=== PATIENT | male | born 1990 | race Caucasian/White ===

== ENCOUNTER 2024-07-12 13:29 | Emergency (ER) | payer BC ==
--- OUTSIDE RECORDS SUMMARY | 2024-07-12 13:33 | XMS REPORT | Continuity of Care Document ---
Author Name Unknown Address [address] [facility] [address] [place] [address] [facility] thconnect Address [address] [facility] [address] [place] [address] Care Team Providers Care Molasses Preparer Name Role Phone Ace CAMARGO, Donna Primary Care Physician UnavailSarah Renee Attending Clinician Unavailable HUGO MATTHEWS Attending Clinician Unavailable MARY BETH CHAKRABORTY Attending Clinician Unavailable GRACE PETIT Attending Clinician Unavailable MD GIUSEPPE Attending Clinician UnavailYOSHI Moreno Attending Clinician Unavailable [id number] Attending Clinician Unavailable ZACK KNUTSON Attending Clinician Unavailable SARAH FORD Attending Clinician Unava ilKATHY Cooper Attending Clinician Unavailable JAQUELINE URRUTIA Attending Clinician Unavailable TORREY KAUR Attending Clinician Unavailable Doctor Unassigned, Napanoch Attending Clinician U navailcatherine [id number] Attending Clinician Unavailable [id number] Attending Clinician Unavailable JS MERCADO Attending Clinician UnavailEAMON Molina Attending Clinician Unavailable Payers Payer Name Policy Type Policy Number Effective Date Expirati on Date Source BCBS 2 [id number] 2020 00:00:00 Problems Condition Name Condition Details Condition Category Status Onset Date Resolution Date Last Treatment Date Treating Clinician Comments Source Elevated BP without diagnosis of hypertensi on Elevated BP without diagnosis of hypertensi on Disease Active 2021-06 00:00: 00 Kelly Arcos - Externa l Cat bite of ankle, left, initial encounter Cat bite of ankle, left, initial encounter Disease Active 2021-06 00:00: 00 Kelly Petersenold - Externa l Anxiety Anxiety Disease Active 09-23 00:00: 00 Kelly Arcos - Externa l Molluscum contagiosu m Molluscum contagiosu m Disease Active 09-23 00:00: 00 Kelly Petersenold - Externa l Social History Social Habit Start Date Stop Date Quantity Comments Source Gender identity 2023-02-07 09:49:30 Identifies as male gender (finding) Kelly Arcos - External Sexual orientation K kimberlee Arcos - External History SDOH Alcohol Std Drinks Kelly claire - External History SDOH Alcohol Binge Kelly Arcos - External History of Occupation Kelly Arcos - External Exposure to SARS-CoV-2 (event) Not sure Kelly Zamudio alethea Alcoholic beverage intake 2024-06-02 00:00:00 2024-06-02 00:00:00 .29 /d Kelly Arcos - External Tobacco use and exposure 2024-01-29 00:00:00 2024-01-29 00:00:00 Smokeless tobacco non-user Kelly Arcos - External History of Social function 2024-01-29 00:00:00 2024-01-29 00:00:00 Kelly Arcos - External Alcohol Comment 2024-01-29 00:00:00 2024-01-29 00:00:00 rarely Kelly Arcos - External Alcohol intake 2022-04-24 00:00:00 2022-04-24 00:00:00 .29 /d Kelly Arcos - External History SDOH Alcohol Frequency 2018-11-14 00:00:00 2018-11-14 00:00:00 2 Kelly Arcos - External Sex 2017-09-18 11:18:25 2017-09-18 11:18:25 Male (finding) Kelly Arcos - External Sex assigned at 1990 00:00:00 1990 00:00:00 Lacey Kelly Munoz Smoking Status Start Date Stop Date Source Never smoked tobacco Kelly Munoz Medications Ordered Medication Name Filled Medication Name Start Date Stop Date Current Medication? Ordering Clinician Indication Dosage Frequency Signature (SIG) Comments Components Source Multiple Vitamin (MULTIVITAM IN ADULT OR) 07-10 11:27: 01 Yes Take by mouth. Kelly villalba Benzonatate (Tessalon Perles) 100 MG oral Capsule 07-10 00:00: 00 Yes [id number] 100mg Q.[id number] 3D Take 1 capsule (100 mg total) by mouth 3 times daily as needed for cough. Kelly villalba Guaifenesin (Mucinex) 600 MG oral Tablet 12 Hour Sustained Release 07-10 00:00: 00 Yes [id number] 1200mg Q.5D Take 2 tablets (1,200 mg total) by mouth 2 times daily. Kelly villalba hydrOXYzine HCl 25 MG oral Tablet 06-29 00:00: 00 Yes [id number] TAKE 1 TABLET(25 MG) BY MOUTH EVERY NIGHT NEEDED FOR ANXIETY OR INSOMNIA Kelly villalba Tirzepatide -Weight Management (Zepbound) 5 MG/0.5ML subcutaneou s Solution Auto-inject or 06-23 00:00: 00 Yes [id number] 5mg Q1W Inject 0.5 mL (5 mg total) into the skin once a week. Kelly villalba Multiple Vitamin (MULTIVITAM IN ADULT OR) 2023-06 09:23: 08 Yes Take by mouth. Kelly villalba Tirzepatide -Weight Management (Zepbound) 2.5 MG/0.5ML subcutaneou s Solution Auto-inject or 2023-06 00:00: 00 Yes [id number] 2.5mg Q1W Inject 0.5 mL (2.5 mg total) into the skin once a week. Kelly villalba hydrOXYzine HCl 25 MG oral Tablet 2023-06 00:00: 00 Yes [id number] TAKE 1 TABLET(25 MG) BY MOUTH EVERY NIGHT NEEDED FOR ANXIETY OR INSOMNIA Kelly villalba Lisinopril 2.5 MG oral Tablet 2023-06 00:00: 00 07-30 05:59 :00 Yes [id number] 2.5mg QD Take 1 tablet (2.5 mg total) by mouth daily. Kelly Bales Externa deejay FLUTICASONE PROPIONATE, NASAL, 50 MCG/ACT nasal Suspension 2023-06 00:00: 00 Yes [id number] 50ug QD Use 1 spray (50 mcg total) in each nostril daily as needed for rhinitis or allergies. Kelly villalba Amoxicillin -Pot Clavulanate 875-125 MG oral Tablet 2023-06 00:00: 00 06-02 00:00 :00 No [id number] 1{tbl} Q.5D Take 1 tablet by mouth 2 times daily. Kelly villalba methylPREDN ISolone 4 MG oral Tablet Therapy Pack 2023-06 00:00: 00 06-02 00:00 :00 No [id number] Complete one dose pack as directed on package instructio ns. Kelly villalba Lisinopril 2.5 MG oral Tablet 2023-06 00:00: 00 Yes [id number] 2.5mg QD TAKE 1 TABLET(2.5 MG) BY MOUTH DAILY Kelly villalba hydrOXYzine HCl 25 MG oral Tablet 2023-06 00:00: 00 Yes [id number] TAKE 1 TABLET(25 MG) BY MOUTH EVERY NIGHT NEEDED FOR ANXIETY OR INSOMNIA Kelly villalba Multiple Vitamin (MULTIVITAM IN ADULT OR) 02-24 15:00: 45 Yes Take by mouth. Kelly villalba Lisinopril 2.5 MG oral Tablet 02-24 00:00: 00 Yes [id number] 2.5mg QD TAKE 1 TABLET(2.5 MG) BY MOUTH DAILY Kelly Bales Externnoel villalba hydrOXYzine HCl 25 MG oral Tablet 02-24 00:00: 00 Yes [id number] TAKE 1 TABLET(25 MG) BY MOUTH EVERY NIGHT NEEDED FOR ANXIETY OR INSOMNIA Kelly villalba Multiple Vitamin (MULTIVITAM IN ADULT OR) 01-28 13:48: 20 Yes Take by mouth. Kelly villalba Lisinopril 2.5 MG oral Tablet 01-28 00:00: 00 Yes [id number] 2.5mg QD Take 1 tablet (2.5 mg total) by mouth daily. Kelly villalba hydrOXYzine HCl 25 MG oral Tablet 01-28 00:00: 00 Yes [id number] 25mg QD Take 1 tablet (25 mg total) by mouth nightly as needed for anxiety (insomnia) . Kelly villalba Meclizine HCl 12.5 MG oral Tablet 01-28 00:00: 00 Yes [id number] 12.5mg Q.[id number] 3D Take 1 tablet (12.5 mg total) by mouth 3 times daily as needed. Kelly villalba FLUTICASONE PROPIONATE, NASAL, 50 MCG/ACT nasal Suspension 17 00:00: 00 01-28 00:00 :00 No [id number] QD SHAKE LIQUID AND USE 1 SPRAY(50 MCG) IN EACH NOSTRIL DAILY Kelly villalba Cetirizine 10 MG oral Tablet 08-01 12:31: 31 08-01 00:00 :00 No 10mg Take 10 mg by mouth daily Kelly villalba FLUTICASONE PROPIONATE, NASAL, 50 MCG/ACT nasal Suspension 08-01 00:00: 00 Yes [id number] 50ug Use 1 spray (50 mcg total) in each nostril daily. Kelly villalba Pseudoeph-B romphen-DM 30-2-10 MG/5ML oral Syrup 15 00:00: 00 01-28 00:00 :00 No [id number] 10mL Q.25D Take 10 mL by mouth 4 times daily as needed. Kelly villalba Amoxicillin -Pot Clavulanate 875-125 MG oral Tablet 02-07 00:00: 00 02-15 04:59 :00 No [id number] 1{tbl} Take 1 tablet by mouth 2 times daily for 7 days. Kelly villalba Azithromyci n 500 MG oral Tablet 12-25 00:00: 00 Yes [id number] Take 1 tablet by mouth daily NEEDED for SEVERE DIARRHEA. Kelly villalba Cetirizine 10 MG oral Tablet 2021-06 10:25: 14 Yes 10mg Take 10 mg by mouth daily Kelly villalba Cetirizine (ZyrTEC Allergy) 10 MG oral Tablet 2021-06 09:02: 33 Yes 10mg Take 10 mg by mouth daily Kelly villalba Mupirocin (BACTROBAN) 2 % apply externally Ointment 2021-06 00:00: 00 Yes [id number] Apply 1 applicatio n topically 2 times daily Kelly villalba Amoxicillin -Pot Clavulanate 875-125 MG oral Tablet 2021-06 00:00: 00 02-07 00:00 :00 No [id number] 1{tbl} Take 1 tablet by mouth 2 times daily Kelly villalba Tamsulosin HCl 0.4 MG oral Capsule 09-18 00:00: 00 04-17 00:00 :00 No [id number] .4mg Take 1 capsule (0.4 mg total) by mouth daily Kelly villalba Nitrofurant oin Monohyd Macro 100 MG oral Capsule 09-14 00:00: 00 04-17 00:00 :00 No [id number] 100mg Take 1 capsule (100 mg total) by mouth in the morning and 1 capsule (100 mg total) in the evening. Kelly villalba Lisinopril 5 MG oral Tablet 06-23 00:00: 00 04-24 00:00 :00 No [id number] TAKE 1 TABLET(5 MG) BY MOUTH DAILY Kelly villalba Tamsulosin HCl 0.4 MG oral Capsule 2020-06 00:00: 00 Yes [id number] TAKE 1 CAPSULE(0. 4 MG) BY MOUTH DAILY Kelly Arcos Lisinopril 5 MG oral Tablet 2020-06 00:00: 00 Yes [id number] 5mg Take 1 tablet (5 mg total) by mouth daily Kelly Arcos Tamsulosin HCl 0.4 MG oral Capsule 2020-06 00:00: 00 Yes [id number] .4mg Take 1 capsule (0.4 mg total) by mouth daily Kelly Arcos Nitrofurant oin Monohyd Macro 100 MG oral Capsule 2020-06 00:00: 00 Yes [id number] 100mg Take 1 capsule (100 mg total) by mouth 2 times daily Kelly Arcos ibuprofen 600 mg tablet 2018-06 00:00: 00 Yes [id number] 600mg Take 1 tablet by mouth every 8 (eight) hours as needed for Pain (scale 4-6) (ear/jaw pain). [facility] Immunizations Ordered Immunization Name Filled Immunization Name Date Status Comments Source Tdap- (Boostrix, Adacel) 2022-04-17 00:00:00 Completed Kelly Arcos - External Tdap- (Boostrix, Adacel) 2022-04-17 00:00:00 Completed Kelly Arcos - External Tdap- (Boostrix, Adacel) 2022-04-17 00:00:00 Completed Kelly Arcos - External Tdap- (Boostrix, Adacel) 2010-02-15 00:00:00 Completed Kelly Arcos - External Tdap- (Boostrix, Adacel) 2010-02-15 00:00:00 Completed Kelly Arcos Tdap- (Boostrix, Adacel) 2010-02-15 00:00:00 Completed Kelly Arcos Tdap- (Boostrix, Adacel) 2010-02-15 00:00:00 Completed Kelly Arcos - External Tdap- (Boostrix, Adacel) 2010-02-15 00:00:00 Completed Kelly Arcos - External Tdap- (Boostrix, Adacel) Unknown Completed Kelly Arcos - External Tdap- (Boostrix, Adacel) Unknown Completed Kelly Seybold - External Tdap- (Boostrix, Adacel) Unknown Completed Kelly Seybold - External Tdap- (Boostrix, Adacel) Unknown Completed Kelly Seybold - External Tdap- (Boostrix, Adacel) Unknown Completed Kelly Seybold - External Tdap- (Boostrix, Adacel) Unknown Completed Kelly Seybold - External Vital Signs Vital Name Observation Time Observation Value Comments S ource Systolic blood pressure 2024-06-02 15:26:00 141 mm[Hg] Kelly Seybo ld - External Diastolic blood pressure 2024-06-02 15:26:00 89 mm[Hg] Kelly Seybo ld - External Heart rate 2024-06-02 15:26:00 80 /min Kelse y Seybold - External Body temperature 2024-06-02 15:26:00 36.5 Holli Kelly Seybold - External Respiratory rate 2024-06-02 15:26:00 18 /min Kelly Seybold - External Body height 2024-06-02 15:26:00 185.4 cm Monserrat ey Seybold - External Body weight 2024-06-02 15:26:00 122.925 kg Monserrat ey Seybold - External BMI 2024-06-02 15:26:00 35.75 kg/m2 Monserrat ey Seybold - External Systolic blood pressure 2024-02-25 20:08:00 127 mm[Hg] Kelly Seybo ld - External Diastolic blood pressure 2024-02-25 20:08:00 87 mm[Hg] Kelly Seybo ld - External Heart rate 2024-02-25 20:08:00 80 /min Kelse y Seybold - External Body temperature 2024-02-25 20:08:00 36.78 Holli Kelly Seybold - External Respiratory rate 2024-02-25 20:08:00 18 /min Kelly Seybold - External Body height 2024-02-25 20:08:00 185.4 cm Monserrat ey Seybold - External Body weight 2024-02-25 20:08:00 120.657 kg Monserrat ey Seybold - External BMI 2024-02-25 20:08:00 35.09 kg/m2 Monserrat ey Seybold - External Systolic blood pressure 2024-01-29 18:50:00 148 mm[Hg] Kelly Seybo ld - External Diastolic blood pressure 2024-01-29 18:50:00 92 mm[Hg] Kelly Seybo ld - External Heart rate 2024-01-29 18:46:00 82 /min Kelse y Seybold - External Body temperature 2024-01-29 18:46:00 36.56 Holli Kelly Seybold - External Respiratory rate 2024-01-29 18:46:00 16 /min Kelly Seybold - External Body height 2024-01-29 18:46:00 185.4 cm Monserrat ey Seybold - External Body weight 2024-01-29 18:46:00 122.199 kg Monserrat ey Seybold - External BMI 2024-01-29 18:46:00 35.54 kg/m2 Monserrat ey Seybold - External Oxygen saturation in Arterial blood by Pulse oximetry 2024-01-29 18:46:00 98 /min Kelly Seybo ld - External Systolic blood pressure 2022-04-24 16:37:00 120 mm[Hg] Kelly Seybo ld - External Diastolic blood pressure 2022-04-24 16:37:00 82 mm[Hg] Kelly Seybo ld - External BMI 2022-04-24 16:22:00 34.04 kg/m2 Monserrat ey Seybold - External Oxygen saturation in Arterial blood by Pulse oximetry 2022-04-24 16:22:00 99 /min Kelly Seybo ld - External Heart rate 2022-04-24 16:22:00 92 /min Kelse y Seybold - External Body temperature 2022-04-24 16:22:00 36.56 Holli Kelly Seybold - External Respiratory rate 2022-04-24 16:22:00 14 /min Kelly Seybold - External Body height 2022-04-24 16:22:00 185.4 cm Monserrat ey Seybold - External Body weight 2022-04-24 16:22:00 117.028 kg Monserrat ey Seybold - External Systolic blood pressure 2022-04-17 13:59:00 138 mm[Hg] Kelly Seybo ld - External Diastolic blood pressure 2022-04-17 13:59:00 83 mm[Hg] Kelly Seybo ld - External Heart rate 2022-04-17 13:59:00 97 /min Kelse y Seybold - External Body temperature 2022-04-17 13:59:00 36.94 Holli Kelly Seybold - External Respiratory rate 2022-04-17 13:59:00 13 /min Kelly Seybold - External Body height 2022-04-17 13:59:00 185.4 cm Monserrat ey Seybold - External Body weight 2022-04-17 13:59:00 117.391 kg Monserrat ey Seybold - External BMI 2022-04-17 13:59:00 34.14 kg/m2 Monserrat ey Seybold - External Systolic blood pressure 2021-09-14 19:24:00 130 mm[Hg] Kelly Seybo ld Diastolic blood pressure 2021-09-14 19:24:00 78 mm[Hg] Kelly Seybo ld Heart rate 2021-09-14 19:24:00 87 /min Kelse y Seybold Body temperature 2021-09-14 19:24:00 37.06 Holli Kelly Seybold Respiratory rate 2021-09-14 19:24:00 14 /min Kelly Seybold Body height 2021-09-14 19:24:00 185.4 cm Monserrat ey Seybold Body weight 2021-09-14 19:24:00 113.853 kg Monserrat ey Seybold BMI 2021-09-14 19:24:00 33.12 kg/m2 Monserrat ey Seybold Systolic blood pressure 2021-03-24 16:02:00 136 mm[Hg] Kelly Seybo ld Diastolic blood pressure 2021-03-24 16:02:00 86 mm[Hg] Kelly Seybo ld Heart rate 2021-03-24 16:02:00 74 /min Kelse y Seybold Body temperature 2021-03-24 16:02:00 36.56 Holli Kelly Seybold Respiratory rate 2021-03-24 16:02:00 16 /min Kelly Seybold Body height 2021-03-24 16:02:00 185.4 cm Monserrat ey Seybold Body weight 2021-03-24 16:02:00 113.853 kg Monserrat klaudia Arcos BMI 2021-03-24 16:02:00 33.12 kg/m2 Monserrat klaudia Arcos Procedures Procedure Date / Time Performed Performing Clinicia n Source REFERRAL- REQUEST/RESPONSE 2021-09-25 05:01:00 Doctor Unassigned, Napanoch [facility] URINALYSIS NONAUTO W/O SCOPE 2021-03-24 16:50:00 Sarah Ford Encounters Start Date/Time End Date/Time Encounter Type Admission Type Attending [facility] Care Department Encounter ID Source 2022-01-11 08:35:01 Outpatient Sarah Ford [facility] [id number] [facility] 2022-01-10 09:03:02 Outpatient Sarah Ford [facility] [id number] [facility] 2024-07-10 11:15:00 2024-07-10 11:15:00 Outpatient HUGO MATTHEWS [id number] [facility] 2024-06-29 00:00:00 2024-06-29 00:00:00 Outpatient MARY BETH CHAKRABORTY [id number] [facility] 2024-06-23 00:00:00 2024-06-23 00:00:00 Outpatient GRACE PETIT [id number] [facility] 2024-06-02 09:30:00 2024-06-02 09:30:00 Outpatient GRACE PETIT [id number] [facility] 2024-06-02 00:00:00 2024-06-02 00:00:00 Outpatient MD KELLY MCKEON [id number] [facility] 2024-06-02 00:00:00 2024-06-02 00:00:00 Outpatient GRACE PETIT [id number] [facility] 2024-05-27 00:00:00 2024-05-27 00:00:00 Outpatient MARY BETH CHAKRABORTY [id number] [facility] 2024-04-29 00:00:00 2024-04-29 00:00:00 Outpatient MARY BETH CHAKRABORTY [facility] HAWKINS [id number] [facility] 2024-04-29 00:00:00 2024-04-29 00:00:00 Outpatient MARY BETH CHAKRABORTY [facility] [id number] [facility] 2024-04-29 00:00:00 2024-04-29 00:00:00 Outpatient MARY BETH CHAKRABORTY KELLY HAWKINS [id number] [facility] 2024-04-27 00:00:00 2024-04-27 00:00:00 Outpatient MARY BETH CHAKRABORTY KELLY HAWKINS [id number] [facility] 2024-04-19 12:00:00 2024-04-19 12:00:00 Outpatient YOSHI ANDREWS [id number] [facility] 2024-03-26 00:00:00 2024-03-26 00:00:00 Outpatient MARY BETH CHAKRABORTY KELLY HAWKINS [id number] [facility] 2024-03-25 00:00:00 2024-03-25 00:00:00 Outpatient MD KLELY MCKEON [id number] [facility] 2024-03-18 00:00:00 2024-03-18 00:00:00 Outpatient GRACE PETIT [id number] [facility] 2024-02-28 08:40:00 2024-02-28 08:40:00 Outpatient LAB47 KELLY HAWKINS [id number] [facility] 2024-02-25 15:15:00 2024-02-25 15:15:00 Outpatient GRACE PETIT [id number] [facility] 2024-02-25 00:00:00 2024-02-25 00:00:00 Outpatient DEEPAMARY BETH FRITZ KELLY HAWKINS [id number] Kelly [facility] 2024-01-29 14:45:00 2024-01-29 14:45:00 Outpatient LAB47 KELLY HAWKINS [id number] [facility] 2024-01-29 14:00:00 2024-01-29 14:00:00 Outpatient MARY BETH CHAKRABORTY KELLY HAWKINS [id number] [facility] 2023-11-29 00:00:00 2023-11-29 00:00:00 Outpatient EAMONZACK HAWKINS KELLY HAWKINS [id number] [facility] 2023-08-01 12:30:00 2023-08-01 12:30:00 Outpatient EAMONZACK KELLY HAWKINS [id number] [facility] 2023-02-14 00:00:00 2023-02-14 00:00:00 Outpatient SARAH FORD [id number] [facility] 2023-02-07 10:00:00 2023-02-07 10:00:00 Outpatient KATHY BOLANOS KE[facility] HAWK[facility] [id number] [facility] 2023-02-07 00:00:00 2023-02-07 00:00:00 Outpatient SARAH FORD [id number] [facility] 2022-12-25 10:45:00 2022-12-25 10:45:00 Outpatient JAQUELINE URRUTIA [id number] [facility] 2022-12-19 00:00:00 2022-12-19 00:00:00 Outpatient PRETORREY OLIVIA [id number] [facility] 2022-04-24 10:15:00 2022-04-24 10:15:00 Outpatient PREZAS TORREY HAWKINS [id number] [facility] 2022-04-17 09:00:00 2022-04-17 09:00:00 Outpatient PREZAS TORREY HAWKINS [id number] [facility] 2021-09-25 00:00:00 2021-09-25 00:00:00 Outpatient SARAH FORD [id number] [facility] 2021-09-25 00:00:00 2021-09-25 00:00:00 Orders Only Doctor Unassigned, [place]apanoch [facility] [id number] [facility] 2021-09-20 00:00:00 2021-09-20 00:00:00 Outpatient SARAH FORD KELLY [id number] Kelly [facility] 2021-09-19 00:00:00 2021-09-19 00:00:00 Outpatient SARAH FORD KELLY HAWKINS [id number] [facility] 2021-09-14 14:45:00 2021-09-14 14:45:00 Outpatient SARAH FORD KELLY HAWKINS [id number] [facility] 2021-09-14 14:30:00 2021-09-14 14:45:00 Office Visit Sarah Ford [id number] [facility] 2021-06-23 00:00:00 2021-06-23 00:00:00 Outpatient SARAH FORD KELLY HAWKINS [id number] [facility] 2021-04-10 11:00:00 2021-04-10 11:00:00 Outpatient SARAH FORD [facility] HAWKINS [id number] [facility] 2021-03-31 11:00:00 2021-03-31 11:00:00 Outpatient SARAH FORD [facility] HAWKINS [id number] [facility] 2021-03-24 11:55:00 2021-03-24 11:55:00 Outpatient FIT21-NOL KELLY HAWKINS [id number] [facility] 2021-03-24 11:00:28 2021-03-24 11:30:28 Office Visit Sarah Ford [id number] [facility] 2020-12-29 15:30:00 2020-12-29 15:30:00 Outpatient VCJ01-GDO KELLY HAWKINS [id number] [facility] 2020-12-29 15:10:00 2020-12-29 15:10:00 Outpatient TESTING, JS HAWKINS [id number] [facility] 2020-12-29 10:45:00 2020-12-29 10:45:00 Outpatient EAMON SUERO [id number] [facility] 2020-07-18 00:00:00 2020-07-18 00:00:00 Outpatient COH COH [id number] [facility] Results Test Description Test Time Test Comments Results Result Co mments Source Kelly Arcos
[2024-07-12] MEDS ORDERED: FAMOTIDINE 20 MG/2 ML VIAL IV ONE (13:54)
[2024-07-12] MEDS ORDERED: ONDANSETRON 4 MG/2 ML VIAL ONE (13:54)
[2024-07-12] MEDS ORDERED: NA CHLORIDE 0.9% 1,000 ML ONE (13:55)
[2024-07-12 14:38] LABS: Specific Gravity 1.028 (1.005-1.030); Sqamous Epithelial None Seen /HPF (None Seen); Urine Bacteria None Seen /HPF (<20); Urine Bilirubin NEGATIVE (Negative); Urine Blood Negative (Negative); Urine Clarity Clear (Clear); Urine Color Yellow (Yellow); Urine Culture Reflex Order NOT NEEDED; Urine Glucose NEGATIVE (Negative); Urine Ketones NEGATIVE (Negative); Urine Microscopic Reflex YN ORDER UMIC; Urine Mucus Slight /HPF (None Seen); Urine Nitrite NEGATIVE (Negative); Urine Protein TRACE (Negative); Urine RBC <5 /HPF (None Seen); Urine Urobilinogen Normal (Normal); Urine WBC <5 /HPF (<5); Urine Yeast (Budding) Trace /HPF (None Seen); Urine pH 6.5 (5.0-7.0)
--- NOTE | 2024-07-12 14:46 | RAD REPORT ---
EXAM: Chest Single View HISTORY: Cough;Congestion COMPARISON: None. FINDINGS: LUNGS/PLEURA: Linear opacities at the right lung base. MEDIASTINUM: The mediastinal silhouette is within normal limits. CARDIAC: The cardiac silhouette is within normal limits. UPPER ABDOMEN: No significant abnormality. BONES: No acute abnormality. LINES/TUBES/OTHER: N/A IMPRESSION: Question mild right basilar atelectasis or minimal infection/inflammation.
[2024-07-12 14:50] LABS: SARS-CoV-2 Antigen CONTROL BLUE LINE VIS/BG OK; SARS-CoV-2 Antigen Rapid Res Negative (Negative)
[2024-07-12 14:52] LABS: Absolute Basophils 0.2 K/uL (0-0.5); Absolute Lymphocytes (CBC) 0.5 K/uL (0.7-4.9); Absolute Monocytes 0.5 K/uL (0.1-1.3); Absolute Neutrophil 7.2 K/uL (1.8-8.0); Basophils % 1.9 % (0-1.3); Eosinophils % 0.1 % (0-4.4); Hematocrit 48.9 % (39.6-49.0); Hemoglobin 16.7 g/dL (13.6-17.9); Lymphocytes % 5.6 % (15.3-44.8); MCH 29.6 pg (27.0-35.0); MCHC 34.2 g/dL (32.0-36.0); MCV 86.6 fL (80-100); MPV 8.4 fL (7.6-11.3); Monocytes % 6.5 % (3.3-12.3); Neutrophils % 85.9 % (41.7-73.7); Nucleated Red Blood Cells % 0.1 % (0-0); Platelets 218 thou/uL (152-406); RBC Red Blood Cell Count 5.65 M/uL (4.33-5.43); Red Cell Distribution Width 13.6 % (12.1-15.2)
[2024-07-12 15:09] LABS: Albumin 4.1 g/dL (3.4-5.0); Albumin/Globulin Ratio 1.2 (1.1-1.8); Anion Gap 10.6 mEq/L (5.0-15.0); Bilirubin Total 0.5 mg/dL (0.2-1.0); Globulin 3.4 g/dL (2.3-3.5); Potassium 3.6 mEq/L (3.5-5.1); Protein, Total 7.5 g/dL (6.4-8.2)
--- NOTE | 2024-07-12 15:32 | ER ---
Nurse's Notes [facility] [place] Name: Mario Banks Age: 34 yrs Sex: Male : 1990 Arrival Date: 07/12/2024 Time: 13:29 Bed 15 Private MD: Diagnosis: Influenza due to identified novel influenza A virus Presentation: 07/12 13:39 Chief complaint: Patient states: COUGH, FLU SYMPTOMS 102 FEVER TEMP. STARTED SATURDAY db STATES DID A VIDEO CALL WITH PHYSICIAN STARTED MUCINEX. DIARRHEA, N/V STARTED SATURDAY. Coronavirus screen: Client denies travel out of the [place] in the last 14 days. At this time, the client does not indicate any symptoms associated with coronavirus-19. Ebola Screen: Patient negative for fever greater than or equal to 101.5 degrees Fahrenheit, and additional compatible Ebola Virus Disease symptoms Patient denies exposure to infectious person. Patient denies travel to an Ebola-affected area in the 21 days before illness onset. No symptoms or risks identified at this time. Initial Sepsis Screen: Does the patient meet any 2 criteria? No. Patient's initial sepsis screen is negative. Does the patient have a suspected source of infection? No. Patient's initial sepsis screen is negative. Risk Assessment: Do you want to hurt yourself or someone else? Patient reports no desire to harm self or others. Onset of symptoms was July 06, 2024. 13:39 Method Of Arrival: Ambulatory db 13:39 Acuity: ISAC 3 db Triage Assessment: 13:40 General: Appears in no apparent distress. comfortable, Behavior is calm, cooperative. db Pain:. Neuro: Level of Consciousness is awake, alert, obeys commands, Oriented to person, place, time, situation. GI: Reports diarrhea, nausea, vomiting. Historical: - Allergies: 13:41 No Known Allergies; db - PSHx: 13:41 ADENOIDECTOMY; Tonsillectomy; db - Immunization history:: Adult Immunizations unknown. - Infectious Disease History:: Denies. - Social history:: Smoking status: . Screenin:21 [facility] ED Fall Risk Assessment (Adult) History of falling in the last 3 months, kj2 including since admission No falls in past 3 months (0 pts) Confusion or Disorientation No (0 pts) Intoxicated or Sedated No (0 pts) Impaired Gait No (0 pts) Mobility Assist Device Used No (0 pt) Altered Elimination No (0 pt) Score/Fall Risk Level 0 - 2 = Low Risk Maintained a safe environment, Hourly rounding (assess needs \T\ fall precautionary measures) done. Abuse screen: Denies threats or abuse. Denies injuries from another. Nutritional screening: No deficits noted. Tuberculosis screening: No symptoms or risk factors identified. Assessment: 14:19 General: Appears in no apparent distress. uncomfortable, Behavior is calm, cooperative. kj2 Pain: Complains of pain in GENERAL BODY/ALL OVER Pain currently is 6 out of 10 on a pain scale. Neuro: Level of Consciousness is awake, alert, obeys commands, Oriented to person, place, time, situation. Cardiovascular: Patient's skin is warm and dry. Respiratory: Airway is patent Respiratory effort is unlabored. GI: Reports nausea, vomiting. GI: Abdomen is non-distended. : No signs and/or symptoms were reported regarding the genitourinary system. 15:35 Reassessment: Patient appears in no apparent distress at this time. Patient and/or kj2 family updated on plan of care and expected duration. Pain level reassessed. Patient is alert, oriented x 3, equal unlabored respirations, skin warm/dry/pink. Vital Signs: 13:41 BP 140 / 92; Pulse 115; Resp 16; Temp 100.2; Pulse Ox 98% ; Weight 116.12 kg; Height 6 db ft. 1 in. ; 14:35 BP 138 / 88; Pulse 80; Resp 20; Pulse Ox 100% on R/A; kj2 15:36 BP 136 / 86; Pulse 78; Resp 18; Temp 98.2; Pulse Ox 100% on R/A; kj2 13:41 Body Mass Index 33.77 (116.12 kg, 185.42 cm) db ED Course: 13:31 Patient arrived in ED. im 13:33 [facility] kb 13:33 Vishal Bustillos MD is Attending Physician. kb 13:41 Triage completed. db 13:43 Arm band placed on. db 14:05 Missed attempt(s): 20 gauge in left wrist. Bleeding controlled, band aid applied, bc6 catheter tip intact. 14:08 Missed attempt(s): 22 gauge in right antecubital area. Bleeding controlled, band aid db applied, catheter tip intact. 14:12 Missed attempt(s): 22 gauge in right forearm. Bleeding controlled, band aid applied, db catheter tip intact. 14:17 Demi Hyatt, RN is Primary Nurse. kj2 14:23 Patient has correct armband on for positive identification. Bed in low position. Call kj2 light in reach. Adult w/ patient. Provided Education on: CALL LIGHT. 14:32 Chest Single View XRAY In Process Unspecified. EDMS 14:32 SARS-COV-2 Antigen Rapid Sent. kj2 14:32 Flu Sent. kj2 14:32 Urinalysis w/ reflexes Sent. kj2 14:46 Initial lab(s) drawn, by me, sent to lab. Inserted saline lock: 20 gauge in right hb antecubital area, using aseptic technique. ,using aseptic technique. US GUIDED Blood collected. Flushed with 10 mL NS. 14:47 CBC with Diff Sent. hb 14:47 CMP Sent. hb 14:47 Lipase Sent. hb 15:38 No provider procedures requiring assistance completed. IV discontinued, intact, kj2 bleeding controlled, No redness/swelling at site. Pressure dressing applied. Administered Medications: 14:47 Drug: Famotidine IVP 20 mg IVP once; dilute with 10 mL 0.9% NaCl; give over 2 minutes kj2 Route: IVP; Site: right antecubital; 14:47 Drug: Ondansetron IVP 4 mg IVP once; over 2 minutes Route: IVP; Site: right antecubital;hb 14:47 Drug: NS 0.9% IV 1000 ml IV at 1 bolus Per protocol; to be given as a bolus over 60 kj2 minutes Route: IV; Rate: 1 bolus; Site: right antecubital; Medication: 14:23 VIS not applicable for this client. kj2 Outcome: 15:31 Discharge ordered by . kb 15:34 Discharged to home kj2 15:38 Condition: stable kj2 15:38 Discharge instructions given to patient, Instructed on discharge instructions, follow up and referral plans. Demonstrated understanding of instructions, follow-up care, medications, 15:47 Patient left the ED. kj2 Signatures: Dispatcher [employer] EDDE Ca Chin, CEDRICK-C MORNING NEWS ANCHOR-Wayneb Alma Lemus RN RN hb Benton, Danielle, RN RN db Carowatson, Celine bc6 Kandy Hawley Krystal, RN RN kj2
--- NOTE | 2024-07-12 15:32 | EDPHYS ---
Physician Documentation [facility] Name: Mario Banks Age: 34 yrs Sex: Male : 1990 Arrival Date: 07/12/2024 Time: 13:29 Bed 15 Private MD: ED Physician Vishal Bustillos HPI: 07/12 17:06 This 34 yrs old Male presents to ER via Ambulatory with complaints of Nausea/Vomiting, kb Flu Symptoms. 17:06 Patient is a 34-year-old male who presents for cough, congestion, body aches, chills, kb nausea, vomiting, diarrhea that started Saturday and has progressively gotten worse. States he took a COVID and flu test that were both negative. Came in today because he could not keep anything down.. Historical: - Allergies: 13:41 No Known Allergies; db - PSHx: 13:41 ADENOIDECTOMY; Tonsillectomy; db - Immunization history:: Adult Immunizations unknown. - Infectious Disease History:: Denies. - Social history:: Smoking status: . ROS: 16:59 Constitutional: As per HPI kb Exam: 16:59 Constitutional: This is a well developed, well nourished patient who is awake, alert, kb and in no acute distress. Head/Face: Normocephalic, atraumatic. ENT: Moist Mucous membranes Cardiovascular: Regular rate Respiratory: Respirations even and unlabored. No increased work of breathing. Talking in full sentences Abdomen/GI: Soft, non-tender. No distention Skin: Warm, dry with normal turgor. Normal color. MS/ Extremity: Pulses equal, no cyanosis. Neurovascular intact. Full, normal range of motion. Neuro: Awake and alert, GCS 15, oriented to person, place, time, and situation. Vital Signs: 13:41 BP 140 / 92; Pulse 115; Resp 16; Temp 100.2; Pulse Ox 98% ; Weight 116.12 kg; Height 6 db ft. 1 in. ; 14:35 BP 138 / 88; Pulse 80; Resp 20; Pulse Ox 100% on R/A; kj2 15:36 BP 136 / 86; Pulse 78; Resp 18; Temp 98.2; Pulse Ox 100% on R/A; kj2 13:41 Body Mass Index 33.77 (116.12 kg, 185.42 cm) db MDM: 13:34 Medical Screening Exam initiated kb 16:59 Differential diagnosis: Nonspecific abd pain, viral gastroenteritis, flu, covid, uri. kb Data reviewed: vital signs, nurses notes. Historians other than the Patient: Spouse/Significant Other: . Counseling: I had a detailed discussion with the patient and/or guardian regarding the historical points, exam findings, and any diagnostic results supporting the discharge/admit diagnosis, lab results, radiology results, the need for outpatient follow up, a family practitioner, to return to the emergency department if symptoms worsen or persist or if there are any questions or concerns that arise at home. ED course: Pt feeling better and tolerating po intake after treatment. Educated on symptomatic treatment. Will prescribe antibiotics for questionable pneumonia. 07/12 13:43 Order name: Flu; Complete Time: 15:00 kb 07/12 13:43 Order name: SARS-COV-2 Antigen Rapid; Complete Time: 15:00 kb 07/12 13:43 Order name: CBC with Diff kb 07/12 13:43 Order name: CMP; Complete Time: 15:22 kb 07/12 13:43 Order name: Lipase; Complete Time: 15:22 kb 07/12 13:43 Order name: Urinalysis w/ reflexes; Complete Time: 14:39 kb 07/12 13:43 Order name: Chest Single View XRAY; Complete Time: 15:00 kb 07/12 13:43 Order name: IV Saline Lock; Complete Time: 14:46 kb 07/12 13:43 Order name: Labs collected and sent; Complete Time: 14:47 kb Administered Medications: 14:47 Drug: Famotidine IVP 20 mg IVP once; dilute with 10 mL 0.9% NaCl; give over 2 minutes kj2 Route: IVP; Site: right antecubital; 14:47 Drug: Ondansetron IVP 4 mg IVP once; over 2 minutes Route: IVP; Site: right antecubital;hb 14:47 Drug: NS 0.9% IV 1000 ml IV at 1 bolus Per protocol; to be given as a bolus over 60 kj2 minutes Route: IV; Rate: 1 bolus; Site: right antecubital; Disposition Summary: 07/12/24 15:31 Discharge Ordered Notes: Location: Home kb Condition: Stable kb Diagnosis - Influenza due to identified novel influenza A virus kb Followup: kb - With: Emergency Department - When: As needed - Reason: Worsening of condition Followup: kb - With: Private Physician - When: 2 - 3 days - Reason: Recheck today's complaints, Continuance of care, Re-evaluation by your physician Discharge Instructions: - Discharge Summary Sheet kb - Influenza, Adult, [id number] kb Forms: - Medication Reconciliation Form kb - Antibiotic Education kb - Prescription Opioid Use kb - Patient Portal Instructions kb - Leadership Thank You Letter kb Prescriptions: - Zofran 4 mg Oral tablet - take 1 tablet ORAL route every 6 hours As needed; 12 tablet; Refills: 0, kb Product Selection Permitted - Zithromax 500 mg Oral Tablet - take 1 tablet ORAL route once daily for 5 days; 5 tablet; Refills: 0, Product kb Selection Permitted Addendum: 07/13/2024 17:19 Co-signature as Attending Physician, Vishal Bustillos MD I reviewed the patient's care r n provided by the Advanced Practice Provider and agree with the diagnosis and treatment plan. Signatures: Dispatcher [employer] EDCa Cruz, EX CHEF-C EX CHEF-Ckb Vishal Bustillos MD MD rn Baxter, Heather, RN RN hb Benton, Danielle, RN RN Demi Chatman RN RN kj2 Corrections: (The following items were deleted from the chart) 07/12 13:44 13:44 Influenza Screen (A \T\ B)+BA.LAB.BRZ ordered. EDMS EDMS 13:44 13:44 SARS-COV-2 Antigen Rapid+I.LAB.BRZ ordered. EDMS EDMS 13:44 13:44 CBC+H.LAB.BRZ ordered. EDMS EDMS 13:44 13:44 COMPREHENSIVE METABOLIC PANEL+C.LAB.BRZ ordered. EDMS EDMS 13:44 13:44 LIPASE+C.LAB.BRZ ordered. EDMS EDMS 13:44 13:44 Urinalysis+U.LAB.BRZ ordered. EDMS EDMS 13:44 13:44 Chest Single View+RAD.RAD.BRZ ordered. EDMS EDMS
[2024-07-12 18:41] VITALS: O2SAT 100
[2024-07-12 18:51] VITALS: BP 136/86; TEMP 98.2
[2024-07-12 19:55] LABS: Blood Morphology Comment NOT SEEN (NOT SEEN); Platelet Estimate ADEQ; White Blood Cell Scan OK (OK)
== END 2024-07-12 15:47 | disposition home or self-care (01) ==
LOC: ER 13:29
DX: J10.1 Influenza due to other identified influenza virus with other respiratory manifestations (principal); Z11.52 Encounter for screening for COVID-19
CPT/HCPCS: 85025; 81001; 36415; 83690; 80053; 87804 ×2; 71045; 96375; 96374; 99284; 87811; J2405; J7030